=== PATIENT | female | born 1960 | race Caucasian/White ===

== ENCOUNTER 2016-09-28 22:56 | Emergency (ER) | payer BC ==
[2016-09-28 23:05] VITALS: BP 156/88
--- NOTE | 2016-09-29 00:56 | ERNOTE ---
Medical Problem HPI - General Chief Complaint: General Assessment Time Seen by Provider: 09/29/16 00:44 Source: patient Exam Limitations: no limitations - Immun/Allergies/Home Medications Immunizations: IMMUNIZATION HX Immunizations Up to Date No History of Influenza Vaccine No Hx Pneumococcal Vaccination No Allergies/Adverse Reactions: Allergies codeine Allergy (Verified 08/12/16 01:44) Shortness of Breath ibuprofen Allergy (Verified 08/12/16 01:44) Swelling (Other) morphine Allergy (Verified 08/12/16 01:44) Other Home Medications: HOME MEDICATIONS Amitriptyline HCl 75 mg PO HS 08/12/16 [Last Taken Unknown] Atorvastatin Calcium 40 mg PO DAILY 08/12/16 [Last Taken Unknown] Duloxetine HCl [Cymbalta] 60 mg PO DAILY 08/12/16 [Last Taken Unknown] Levothyroxine Sodium [Synthroid] 50 mcg PO DAILY 08/12/16 [Last Taken Unknown] traMADol HCL [Ultram] 100 mg PO QAM 08/12/16 [Last Taken Unknown] - History of Present History Narrative: Pt states that for months she has had numbness in her hands and feet. Lately she states she is "numb from the neck down". Timing: constant Severity: moderate Review of Systems - Review of Systems Constitutional: Present: fatigue EYE: Present: no symptoms reported ENT: Present: no symptoms reported Respiratory: Present: no symptoms reported Cardiology: Present: no symptoms reported Gastrointestinal/Abdominal: Present: nausea, vomiting - day before yesterday Genitourinary: Absent: pain, dysuria Musculoskeletal: Present: no symptoms reported Skin: Present: no symptoms reported Neurological: Present: numbness - described as not being able to tell what is touching her but feels like everything is "broken glass" Endocrine: Present: no symptoms reported Hematologic/Lymphatic: Present: no symptoms reported Psych: Present: no symptoms reported - Patient's Past Medical History Patient History - Medical: Anxiety, Depression, Fibromyalgia, Hypothyroidism, Migraines Patient History - Cardiac/Respiratory: Pneumonia, Sleep Apnea Patient History - Cancer: No Hx of Cancer Patient History - Surgical Procedures: Hysterectomy, Total Knee Replacement Patient History - Other: None - Family History Mother Family History - Cardiac/Respiratory: CVA/Stroke Father Family History - Cardiac/Respiratory: Cardiac Arrest, Coronary Heart Disease, CVA/Stroke, Myocardial Infarction Brother Family History - Cardiac/Respiratory: CHF, CVA/Stroke - Social History Living Situations: alone Psych History: Hx of Anxiety, Hx of Depression Smoking Status: Current every day smoker Patient requests Smoking Cessation Consult: No Initiate information on Smoking Cessation: No Alcohol Use: none Drug Use: none - Immunizations Immunizations Up to Date: No Hx Pneumococcal Vaccination: No History of Influenza Vaccine: No Physical Exam - Physical Exam General Appearance: Present: wd/wn, alert, no apparent distress Eye Exam: Normal inspection: bilateral, PERRL: bilateral Ears, Nose, Throat: Present: normal ENT inspection, hearing grossly normal Neck: Present: normal inspection, nontender Respiratory: Present: no respiratory distress, normal breath sounds, no accessory muscle use Cardiovascular/Chest: Present: regular rate, rhythm, no murmur, normal peripheral pulses Gastrointestinal/Abdominal: Present: nontender, nondistended Back Exam: Present: normal inspection, normal range of motion Extremity Exam: Present: normal inspection, non-tender, extremity edema - +2 Neurological Exam: Present: alert, oriented, normal mood/affect, no motor/ sensory deficits Skin Exam: Present: normal color, warm/dry Lymphatic Exam: Present: no adenopathy ED Progress - Results and Orders Patient's Lab Results:: I have reviewed the patient's lab results. Results and Orders: Laboratory Tests 09/29/16 09/29/16 09/29/16 01:02 01:02 01:17 WBC 5.5 Hgb 12.3 L Hct 36.6 L Plt Count 336 Sodium 143 H Potassium 3.7 Chloride 106 Carbon Dioxide 29.8 Anion Gap 10.9 BUN 9 Creatinine 0.87 Est GFR (Non-Af Amer) 71 Random Glucose 156 H Calcium 9.1 Magnesium 2.3 Total Bilirubin 0.7 AST 21 ALT 31 Alkaline Phosphatase 151 Total Protein 7.5 Albumin 3.6 Urine Color Yellow Urine Appearance Slightly cloudy Urine pH 6.0 Ur Specific [place] 1.020 Urine Protein Negative Urine Glucose (UA) Negative Urine Ketones Negative Urine Blood Negative Urine Nitrate Negative Urine Bilirubin 1 H Urine Ictotest Negative Urine Urobilinogen Normal Ur Leukocyte Esterase 25 H Urine RBC None seen Urine WBC Trace H Ur Epithelial Cells 0-5 Ur Transition Epith Cell Few - 1+ H Urine Bacteria 1+ H Urine Culture Comments Culture to follow - Vital Signs Patient's Vital Signs:: I have reviewed the patient's vital signs. Vital Signs: Vital Signs 09/28/16 23:01 Temperature 36.5 C Pulse Rate 85 Respiratory 18 Rate Blood Pressure 156/88 O2 Sat by Pulse 98 Oximetry - Progress/Reassessment Chief Complaint: General Assessment Progress:: Improved Departure - Departure Clinical Impression: Paresthesia Disposition: Home Follow Up Needed Condition: Good Instructions: Peripheral Neuropathy Additional Instructions: See your regular doctor and be sure to follow up with the sleep study that you have already scheduled. Referrals: [Primary Care Provider] -
[2016-09-29 01:06] LABS: Hematocrit 36.6 % (37.0-47.0); Hemoglobin 12.3 gm/dL (12.5-16.0); Mean Cell Volume 115.1 fl (78-100); Mean Corpuscular Hemoglobin 38.7 pg (27-31); Mean Corpuscular Hgb Conc 33.6 g/dl (32-36); Mean Platelet Volume 10.1 fl (6.0-9.5); Neutrophil # 2.7 K/mm3 (1.3-6.0); Neutrophil % 48.8 % (42-75.0); Platelet Count 336 K/mm3 (150-450); Red Blood Count 3.18 M/mm3 (4.2-5.4); Red Cell Distribution Width 17.5 % (11.5-14.0); White Blood Count 5.5 K/mm3 (4.0-10.5)
[2016-09-29 01:22] LABS: Albumin * 3.6 gm/dl (3.4-5.0); Anion Gap 10.9 mmol/L (6.8-13.8); BUN/Creatinine Ratio 10.3 (9.0-21.6); Bilirubin, Total 0.7 mg/dL (0.0-1.1); Ca. Corrected For Albumin 9.1 mg/dL (8.4-10.2); Calcium * 9.1 mg/dL (7.9-10.9); Carbon Dioxide 29.8 mmol/L (24-32.6); Magnesium 2.3 mg/dL (1.2-2.8); Potassium 3.7 mmol/L (3.4-4.6); Total Protein 7.5 gm/dL (6.2-8.2)
[2016-09-29 01:25] LABS: Urine Bilirubin 1 mg/dl (NEGATIVE); Urine Blood Negative /ul (NEGATIVE); Urine Ketone Negative (NEGATIVE); Urine Nitrite Negative (NEGATIVE); Urine Protein Negative (NEGATIVE); Urine Urobilinogen Normal (NORMAL)
--- OUTSIDE RECORDS SUMMARY | 2016-09-29 01:25 | XMS REPORT | Continuity of Care Document ---
:1960 Author Organization [facility] ([facility]) Address [address] [place] [address] Phone [phone] Care Team Providers Name Role Phone Unavailable Primary Care Provider Unavailable Source Comments This disclosure is being made pursuant to the Care Everywhere program, applicable federal and state laws, and may not contain all informaitonavailable regarding this patient.[facility] ([facility]) Active Allergies and Adverse Reactions Not on File Current Medications Not on file Active Problems Not on file Social History Tobacco Use Types Packs/Day Years Used Date Never Assessed Plan of Care Health Maintenance Due Date Last Done Comments HCV Screening 1960 Hepatitis B Vaccine (1 of 3 - Primary Series) 1960 Tdap Vaccine 1970 Lipid Disorder Screening 1977 MMR Vaccine 1977 Td Vaccine 1977 Cervical Cancer Screening 1989 Mammogram 1999 Colonoscopy 04/08/2009 Influenza Vaccine: Seasonal (#1) 03/13/2016 Results from Last 3 Months Not on file
[2016-09-29 01:36] LABS: Urine Appearance Slightly Cloudy; Urine Bacteria 1+; Urine Color Yellow; Urine RBC None Seen /hpf (0-5); Urine WBC TRACE /hpf (0-5)
[2016-09-29 01:37] LABS: Urine Transitional Epi Cells Few - 1+ /hpf
== END 2016-09-29 02:09 | disposition home or self-care (01) ==
LOC: ER 22:56
DX: R20.9 Unspecified disturbances of skin sensation (principal); Z72.0 Tobacco use; M79.7 Fibromyalgia; E03.9 Hypothyroidism, unspecified; F41.8 Other specified anxiety disorders